=== PATIENT | female | born 1945 | race Caucasian/White ===

== ENCOUNTER 2017-03-14 20:44 | Emergency (ER) | payer MEDICARE ==
--- NOTE | ~2017-03-14 | CR281 ---
[facility] A Service of [facility] & [facility] RADIOLOGY TEXT RESULTS PATIENT: IQRA ESCOBEDO LOCATION: [facility] : 41 UNIT #: [id number] AGE: [address]: BRANDON BARRETT SEX: F ORDER DR: [id number] [facility] [address] [place], [place] [address] [id number] E MR#: [id number] Acc #: [id number] NAME: IQRA ESCOBEDO : 1945 SEX: F STUDY DATE/TIME: 03/14/2017 19:29 UNIT: [facility] ROOM: STUDY DESCRIPTION: CR Wrist Min 3 View Lt Attending Physician: Brandon Barrett Aprn Ordering Physician: Ed Doctor [id number] [facility] Primary Care Physician: Cesar Ny M.D. MEDICAL IMAGING REPORT This report is preliminary unless electronic signature is present EXAM Left wrist series dated 03/14/2017 COMPARISON None. HISTORY Patient fell today on the left wrist with pain and swelling. FINDINGS 3 views of the left wrist were obtained. Comminuted, mildly displaced fracture of the distal radius is noted involving the epiphysis and the metaphysis. There is involvement of the articulating surfaces of the radiocarpal and the distal radioulnar joint surfaces of the radius. No dislocation is seen. There is deformity with swelling noted in this region. Dictated by... Rich Turner M.D. THIS IS AN ELECTRONICALLY VERIFIED REPORT Rich Turner M.D. at 03/16/2017 1:42 PM CPR/mjs TD: 03/15/2017 13:42 JOB #: [id number] MEDICAL IMAGING REPORT Page 1 of 1 COPY
--- NOTE | ~2017-03-14 | CR132 ---
[facility] A Service [facility] RADIOLOGY TEXT RESULTS PATIENT: IQRA ESCOBEDO LOCATION: [facility] : 41 UNIT #: [id number] AGE: [address]: BRANDON BARRETT SEX: F ORDER DR: [id number] [facility] [address] [place], [place] [address] [id number] E MR#: [id number] Acc #: [id number] NAME: IQRA ESCOBEDO. : 1945 SEX: F STUDY DATE/TIME: 03/14/2017 20:32 UNIT: [place] ROOM: STUDY DESCRIPTION: CR Forearm 2 View Lt Attending Physician: Brandon Barrett Aprn Ordering Physician: Barndon Barrett Aprn Primary Care Physician: Cesar Ny M.D. MEDICAL IMAGING REPORT This report is preliminary unless electronic signature is present EXAM Left forearm series dated 03/14/2017 COMPARISON Left wrist series dated 03/14/2017. HISTORY Fell while skating on 03/14/2017. Left forearm pain. FINDINGS 2 views of the left forearm were obtained. There is a comminuted, mildly displaced, dorsally angulated fracture of the distal radius most suggestive of a Colles fracture. Fracture lines extend to the articulating surface of the radius with the radiocarpal joint. No radiocarpal joint dislocation is seen. There is adjacent soft tissue swelling with some deformity of the forearm at the site of the fracture. Ulna is unremarkable. Dictated by... Rich Turner M.D. THIS IS AN ELECTRONICALLY VERIFIED REPORT Rich Turner M.D. at 03/16/2017 1:44 PM CPR/mjs TD: 03/15/2017 14:49 JOB #: [id number] MEDICAL IMAGING REPORT [facility] A Service of [facility] RADIOLOGY TEXT RESULTS PATIENT: IQRA ESCOBEDO LOCATION: [facility] : 41 UNIT #: [id number] AGE: [address]: BRANDON BARRETT SEX: F ORDER DR: Page 1 of 1 COPY
[~2017-03-14 20:44] MED LIST: PRINIVIL10 MG PO; TENORMIN25 MG PO
[2017-03-18] MEDS ORDERED: ATENOLOL25 MG PO (08:54)
[2017-03-18] MEDS ORDERED: LISINOPRIL10 MG PO (08:54)
[2017-03-18] MEDS ORDERED: FISH OIL 1,0001 EAC1 PO (08:55)
[2017-03-18] MEDS ORDERED: VITAMIN D400 UNI1 PO (08:55)
[2017-03-18] MEDS ORDERED: PRAVASTATIN SOD40 MG PO (08:55)
[2017-03-18] MEDS ORDERED: VITAMIN E (08:56)
[2017-03-18] MEDS ORDERED: ARIMIDEX1 MG PO (08:59)
[2017-03-18] MEDS ORDERED: ENDOCET 5-3251 EACH PO (09:06)
== END 2017-03-14 22:23 | disposition home or self-care (01) ==
LOC: CFTX 20:44
DX: S52.501A Unspecified fracture of the lower end of right radius, initial encounter for closed fracture (principal); I10 Essential (primary) hypertension; W19.XXXA Unspecified fall, initial encounter; Y92.830 Public park as the place of occurrence of the external cause
CPT/HCPCS: 29125; 73090; 73110; 99283

== ENCOUNTER → 2017-03-18 | Day surgery (SDC) | payer MEDICARE ==
[~2017-03-18] MED LIST changes: +ARIMIDEX1 MG PO; +ATENOLOL25 MG PO; +ENDOCET 5-3251 EACH PO; +FISH OIL 1,0001 EAC1 PO; +LISINOPRIL10 MG PO; +PRAVASTATIN SOD40 MG PO; +VITAMIN D400 UNI1 PO; +VITAMIN E
--- NOTE | ~2017-03-18 | EKG ---
PATIENT: IQRA ESCOBEDO UNIT #: [id number] Ventricular Rate: 68 BPM Atrial Rate: 68 BPM P-R Interval: 170 ms QRS Duration: 96 ms Q-T Interval: 386 ms QTC Calculation(Bezet): 410 ms P O'Brien: 64 degrees Calculated R O'Brien: 62 degrees Calculated T O'Brien: 48 degrees Diagnosis Line: Normal sinus rhythm Diagnosis Line: Normal ECG Diagnosis Line: No previous ECGs available Diagnosis Line: Confirmed by VIBHA SEBASTIAN MD ([id number]) on 03/18/2017 Diagnosis Line: 10:50:07 PM INTERPRETING MD: ROMULO LAZO
--- NOTE | ~2017-03-18 | OR ---
Unit #: [id number] #: [id number] Patient: IQRA ESCOBEDO [id number] [address] [address] [id number] O MR#: [id number] NAME: IQRA ESCOBEDO ROOM: Date of Procedure: 03/18/2017 Admission Date: 03/18/2017 Surgeon: Aman Cuellar M.D. : 1945 Attending Physician: Aman Cuellar M.D. Referring Physician: Aman Cuellar M.D. Primary Care Physician: Kaitlyn Herring M.D. OPERATIVE REPORT PREOPERATIVE DIAGNOSIS Left intraarticular distal radius fracture. POSTOPERATIVE DIAGNOSIS Left intraarticular distal radius fracture. PROCEDURE PERFORMED Open reduction and internal fixation of left intraarticular distal radius fracture with 3 fragments. IMPLANTS [employer] DVR Crosslock, standard width, standard length. SCALE SHOOTER CARMELITA Leal. ANESTHESIA General with supraclavicular nerve block. ESTIMATED BLOOD LOSS Minimal. TOURNIQUET TIME 51 minutes. INDICATIONS FOR PROCEDURE Ms. Escobedo is a 71-year-old female, who injured her left wrist in a ground level fall or roller skating. She was seen in the emergency department and then placed into a splint and subsequently referred to our office. She was found to have a displaced intraarticular distal radius fracture. We discussed operative intervention including risks, benefits, and alternatives. She elected to proceed. DESCRIPTION OF PROCEDURE The patient was identified in the preoperative holding area. The operative site was marked. A regional block was performed. Preoperative antibiotics were administered. The patient was brought to the operating room and placed supine on the operating table. A general anesthetic was induced. The left upper extremity was then prepped and draped in sterile fashion. A HemaClear tourniquet was applied. An incision was made over the flexor carpi radialis tendon. Dissection was carried down to the tendon itself. The tendon sheath was opened and the tendon mobilized in Unit #: [id number] #: [id number] Patient: IQRA ESCOBEDO an ulnar direction. Dissection was carried down through the floor of the FCR down to the FPL, which was again mobilized in an ulnar direction. The pronator quadratus was elevated up off the distal radius. The brachioradialis was elevated off the styloid fragment. A reduction maneuver was then performed. We used a [place] elevator to try to elevate a central displaced fragment. The styloid fragment was a separate fragment, which was pinned with a K-wire and then manipulated with a joystick into the desired position and then pinned to the radial shaft. The lunate facet fragment was elevated as well with a [place] elevator. Once we had adequate reduction, we applied the plate of the desired size. This was initially fixated with the oblong screw hole in the shaft and the plate was then directed slightly proximal to the desired location. The wrist was held in a reduced position while K-wires were used to provisionally fix the distal fragments. Again, position was checked under C-arm imaging. We then drilled and placed the locking pegs distally. We utilized a smooth locking pegs in all distal holes. K-wires were gradually removed as pegs were inserted and we achieved stability through the plate. We then placed 2 more fully threaded nonlocking cortical screws in the shaft. Final imaging was obtained and demonstrated an anatomic reduction and satisfactory placement of the hardware. The wound was then irrigated. The tourniquet was deflated. Hemostasis was achieved with a combination of bipolar and Bovie electrocautery. The wound was then closed with 3-0 Vicryl and 3-0 nylon. A well-padded volar splint was applied. DISPOSITION Stable to the recovery room. Dictated by... Elena Light/patience TD: 03/19/2017 01:52 JOB #: [id number] OPERATIVE REPORT Page 1 of 1 X Aman Cuellar MD PROCEDURE OPERATIVE NOTE
--- NOTE | ~2017-03-18 | CR278 ---
[facility] A Service of [facility] & [facility] RADIOLOGY TEXT RESULTS PATIENT: IQRA ESCOBEDO LOCATION: [facility] : 41 UNIT #: [id number] AGE: [address]: Aman Cuellar MD SEX: F ORDER DR: [id number] [facility] [address] [place], [place] [address] [id number] O MR#: [id number] Acc #: [id number] NAME: IQRA ESCOBEDO : 1945 SEX: F STUDY DATE/TIME: 03/18/2017 10:46 UNIT: [facility] ROOM: STUDY DESCRIPTION: CR Wrist 2 View Lt Attending Physician: Aman Cuellar M.D. Referring Physician: Aman Cuellar M.D. Ordering Physician: Aman Cuellar M.D. Primary Care Physician: Kaitlyn Herring M.D. MEDICAL IMAGING REPORT This report is preliminary unless electronic signature is present EXAM Left wrist. DATE OF EXAM 03/18/2017 HISTORY Open reduction and internal fixation. Distal radial fracture. TECHNIQUE 5 overhead spot films were obtained documenting open reduction and internal fixation of a comminuted distal radial fracture with ventral bone plate and screws. Total fluoroscopy time 1 minute, 19 seconds. Please see the operative report for full details of the procedure. Dictated by... Yobany Rowland M.D. THIS IS AN ELECTRONICALLY VERIFIED REPORT Yobany Rowland M.D. at 03/18/2017 4:29 PM ROSENDA/christin TD: 03/18/2017 16:21 JOB #: [id number] MEDICAL IMAGING REPORT Page 1 of 1 COPY
[2017-03-18 09:04] LABS: BASOPHIL% 0.6 % (0-2.5); EOSINOPHIL# 0.2 X10e3 (0-0.7); EOSINOPHIL% 3.3 % (0.0-7.0); HEMATOCRIT 38.4 % (35.0-45.0); HEMOGLOBIN 12.7 gm/dL (12.0-16.0); LYMPHOCYTE% 13.6 % (17.0-45.0); MEAN CELL VOLUME 90.3 FL (83-96); MEAN CORPUSCULAR HGB CONC 33.2 g/dL (30-36); MEAN PLATELET VOLUME 8.5 FL (6.5-11.5); MONOCYTE# 0.4 X10e3 (0-1.0); MONOCYTE% 5.5 % (3.0-12.0); NEUTROPHIL# 5.7 X10e3 (1.5-7.1); PLATELET COUNT 152 X10e3 (140-420); RED BLOOD COUNT 4.25 X10e (3.90-5.30); RED CELL DISTRIBUTION WIDTH 13.6 % (11.0-15.5); WHITE BLOOD COUNT 7.4 X10e3 (4.0-10.5)
[2017-03-18 09:20] LABS: DIFF IND NO
[2017-03-18 09:55] LABS: BUN/CREATININE RATIO 26.66; CALCIUM SERUM 9.1 mg/dL (8.4-10.2); CREATININE SERUM 0.6 mg/dL (0.6-1.4); GLOM FILT RATE Estimated 90.4 mL/min (>60); POTASSIUM 4.1 mmol/L (3.5-5.1)
== END | disposition home or self-care (01) ==
LOC: CSUR 08:01
PROVIDERS: Orthopaedic Surgery
DX: S52.572A Other intraarticular fracture of lower end of left radius, initial encounter for closed fracture (principal); I10 Essential (primary) hypertension; E78.5 Hyperlipidemia, unspecified; Z90.710 Acquired absence of both cervix and uterus; Z85.3 Personal history of malignant neoplasm of breast; Z90.11 Acquired absence of right breast and nipple; Z79.899 Other long term (current) drug therapy; V00.121A Fall from non-in-line roller-skates, initial encounter
CPT/HCPCS: 73100; 76001; 80048; 85025; 93005; C1713; J0690; J1100; J2405; J2795; J3010